=== PATIENT | female | born 1945 | race Caucasian/White ===

== ENCOUNTER 2018-10-18 20:32 | Outpatient (REF) | payer MEDICARE, OTHER, SELFPAY ==
[2018-10-18 21:58] LABS: ALT 58 U/L (12-78); AST 51 U/L (15-37); Albumin 4.3 g/dL (3.4-5.0); Alkaline Phosphatase 64 U/L (46-116); Anion Gap 11.3 mmol/L (3-11); BUN 19 mg/dL (7-18); Bilirubin, Total 0.6 mg/dL (0.2-1.0); CO2 26.7 mmol/L (21.0-32.0); CREATININE 0.98 mg/dL (0.55-1.02); Calcium 9.9 mg/dL (8.5-10.1); Chloride 101 mmol/L (98-107); Cholesterol 136 mg/dL (50-200); Estimated GFR 55.95 (mL/min/1.73m2); Glucose 156 mg/dL (70-100); HDL Cholesterol 42 mg/dL (40-60); LDL CHOLESTEROL 78 mg/dL (<100); Potassium 4.3 mmol/L (3.5-5.1); Sodium 139 mmol/L (136-145); Triglyceride 77 mg/dL (30-150)
== END 2018-10-18 20:52 ==
LOC: NCHCN 20:32
PROVIDERS: PCP Family Medicine; Visit Provider Family Medicine
DX: E78.5 Hyperlipidemia, unspecified (principal); E11.65 Type 2 diabetes mellitus with hyperglycemia; I10 Essential (primary) hypertension
CPT/HCPCS: 80053; 80061; 83721

== ENCOUNTER 2019-10-15 22:46 | Outpatient (REF) | payer MEDICARE, OTHER, SELFPAY ==
[2019-10-15 23:23] LABS: COMMENT (LAB VIEW ONLY) 59.76 mg/dL; Microalb ug/mg Crea 6.4 ug/mg Cr
== END 2019-10-15 23:06 ==
LOC: NCHCN 22:46
PROVIDERS: PCP Family Medicine; Visit Provider Nurse Practitioner Family
DX: E11.9 Type 2 diabetes mellitus without complications (principal)
CPT/HCPCS: 82043; 82570

== ENCOUNTER 2020-03-31 13:26 | Outpatient (REF) | payer MEDICARE, SELFPAY ==
[2020-03-31 21:28] LABS: Anion Gap 11.9 mmol/L (3-11); BUN 19 mg/dL (7-18); CO2 26.1 mmol/L (21.0-32.0); Calcium 9.4 mg/dL (8.5-10.1); Chloride 102 mmol/L (98-107); Glucose 143 mg/dL (74-106); Potassium 4.2 mmol/L (3.5-5.1); Sodium 140 mmol/L (136-145)
== END 2020-03-31 13:46 ==
LOC: NCHCN 13:26
PROVIDERS: PCP Family Medicine; Visit Provider Family Medicine
DX: E11.9 Type 2 diabetes mellitus without complications (principal); I10 Essential (primary) hypertension
CPT/HCPCS: 80048

== ENCOUNTER 2021-01-26 21:51 | Outpatient (REF) | payer OTHER, SELFPAY ==
[2021-01-26 22:11] LABS: COMMENT (LAB VIEW ONLY) 115.61 mg/dL; Microalb ug/mg Crea 5.4 ug/mg Cr
== END 2021-01-26 21:52 | disposition home or self-care (01) ==
LOC: NCHCN 21:51
PROVIDERS: PCP Family Medicine; Visit Provider Family Medicine
DX: E11.9 Type 2 diabetes mellitus without complications (principal)
CPT/HCPCS: 82043; 82570

== ENCOUNTER 2022-02-13 18:37 | Outpatient (REF) | payer OTHER, SELFPAY ==
[2022-02-13 17:12] LABS: COMMENT (LAB VIEW ONLY) 117.94 mg/dL; Microalb ug/mg Crea 5.9 ug/mg Cr
== END 2022-02-13 18:38 | disposition home or self-care (01) ==
LOC: NCHCN 18:37
PROVIDERS: PCP Family Medicine; Visit Provider Family Medicine
DX: E11.9 Type 2 diabetes mellitus without complications (principal)
CPT/HCPCS: 82043; 82570

== ENCOUNTER 2023-02-16 15:37 | Outpatient (REF) | payer MEDICARE, SELFPAY ==
[2023-02-16 20:56] LABS: Anion Gap 12.8 mmol/L (3-11); BUN 17 mg/dL (7-18); CO2 26.2 mmol/L (21.0-32.0); Calcium 9.6 mg/dL (8.5-10.1); Chloride 103 mmol/L (98-107); Estimated GFR 58.75 (mL/min/1.73m2); Glucose 131 mg/dL (74-106); Potassium 4.5 mmol/L (3.5-5.1); Sodium 142 mmol/L (136-145)
[2023-02-16 21:06] LABS: Hemoglobin A1C 6.7 % (<5.7)
[2023-02-16 21:31] LABS: COMMENT (LAB VIEW ONLY) 80.43 mg/dL; Microalb ug/mg Crea 5.6 ug/mg Cr
== END 2023-02-16 15:38 | disposition home or self-care (01) ==
LOC: NCHCN 15:37
PROVIDERS: PCP Family Medicine; Visit Provider Family Medicine
DX: E11.9 Type 2 diabetes mellitus without complications (principal); I10 Essential (primary) hypertension
CPT/HCPCS: 80048; 82043; 82570; 83036

== ENCOUNTER 2024-04-11 10:26 | Outpatient (REF) | payer MEDICARE, SELFPAY ==
[2024-04-11 15:28] LABS: COMMENT (LAB VIEW ONLY) 138.59 mg/dL; Microalb ug/mg Crea 3.3 ug/mg Cr
== END 2024-04-11 10:27 | disposition home or self-care (01) ==
LOC: NCHCN 10:26
PROVIDERS: PCP Family Medicine; Visit Provider Family Medicine
DX: E11.9 Type 2 diabetes mellitus without complications (principal)
CPT/HCPCS: 82043; 82570

== ENCOUNTER 2025-08-18 16:15 | Outpatient (REF) | payer MEDICARE, SELFPAY ==
[2025-08-18 22:08] LABS: Microalb ug/mg Crea 3.1 ug/mg Cr
== END 2025-08-18 16:16 | disposition home or self-care (01) ==
LOC: NCHCN 16:15
PROVIDERS: PCP Family Medicine; Visit Provider Family Medicine
DX: E11.9 Type 2 diabetes mellitus without complications (principal)
CPT/HCPCS: 82043; 82570